=== PATIENT | female | born 1955 | race Caucasian/White ===

== ENCOUNTER 2016-07-09 08:14 | Inpatient (IN) | payer MEDICARE, MEDICAID ==
[2016-07-08 14:54] VITALS: BMI 21.1
[2016-07-08 15:00] VITALS: BP_SYST 130; RESP 20; TEMP 97.1
[~2016-07-09] VITALS: Ht 154.9 cm; Wt 56.2 kg
[2016-07-09] VITALS (40 sets, daily range): BP systolic 82–170; RESP 11–23; TEMP 97.2–98; Ht 154.9 cm; Wt 56.2 kg
[2016-07-09] MEDS: LACT RINGERS 1,000 ML IV SCH ×2 (08:10→09:27)
[~2016-07-09 08:14] MED LIST: GLYCOPYRROLATE 0.2 MG/ML VIAL IV ONE; LIDOCAINE 1% BUFFERED 1 ML SYR INTRADERM PRN; MIDAZOLAM 2 MG/2 ML INJ IV ONE
[2016-07-09] MEDS ORDERED: CEFAZOLIN 2,000 MG in SODIUM CHLORIDE 0.9% 100 ML IV ONE (08:20)
[2016-07-09] MEDS ORDERED: NALOXONE 0.4 MG/ML AMP IV PRN (10:10)
[2016-07-09] MEDS ORDERED: BUPIV EPIDURAL SCH (10:10)
[2016-07-09] MEDS ORDERED: ONDANSETRON 4 MG VIAL IV PRN ×3 (10:10→15:55)
[2016-07-09] MEDS ORDERED: FENT EPIDURAL SCH (10:10)
[2016-07-09] MEDS ORDERED: PROTAMINE 50 MG/5 ML VIAL IV ONE (11:14)
[2016-07-09] MEDS ORDERED: BACITRACIN 50,000 UNITS INJ IRRIG ONE (11:14)
[2016-07-09] MEDS ORDERED: GELATIN SPONGE 100 CM2 TOPICAL ONE (11:14)
[2016-07-09] MEDS ORDERED: THROMBIN SOLN 20000 UNITS KIT TOPICAL ONE ×2 (11:14)
[2016-07-09] MEDS ORDERED: MORPHINE 4 MG/ML SYR IV PRN (11:15)
[2016-07-09] MEDS ORDERED: OXYCODONE 5 MG TAB PO PRN (11:15)
[2016-07-09] MEDS ORDERED: MEPERIDINE 25 MG/ML IV PRN (11:15)
[2016-07-09] MEDS ORDERED: MORPHINE 2 MG/ML SYR IV PRN (11:15)
[2016-07-09] MEDS ORDERED: DILAUDID 1 MG/ML AMP IV PRN (11:15)
[2016-07-09] MEDS ORDERED: ONDANSETRON 4 MG VIAL IV PUSH ONE (11:34)
[2016-07-09] MEDS ORDERED: FENTANYL 250 MCG/5 ML AMP IV ONE (11:34)
[2016-07-09] MEDS ORDERED: LIDOCAINE 2% SYR 5 ML IV ONE (11:34)
[2016-07-09] MEDS ORDERED: MORPHINE PF 0.5 MG/ML 10 ML IV ONE (11:34)
[2016-07-09] MEDS ORDERED: PHENYLEPHRINE 10 MG/ML VIAL IV ONE (11:34)
[2016-07-09] MEDS ORDERED: NEOSTIGMINE 10 MG/10 ML VIAL IV ONE (11:34)
[2016-07-09] MEDS ORDERED: PROPOFOL 20 ML PER ML IV ONE (11:34)
[2016-07-09] MEDS ORDERED: GLYCOPYRROLATE 0.2 MG/ML VIAL IV ONE (11:34)
[2016-07-09] MEDS ORDERED: BUPIVACAINE 0.25% PF 10ML EPIDURAL ONE (11:34)
[2016-07-09] MEDS ORDERED: ROCURONIUM 50 MG VIAL IV ONE (11:34)
[2016-07-09] MEDS ORDERED: HEPARIN IV SCH (15:55)
[2016-07-09] MEDS ORDERED: SALINE FLUSH 10 ML FLUSH PRN (15:55)
[2016-07-09] MEDS ORDERED: POTASSIUM CHLORIDE PREMIX 50 ML IV PRN (15:55)
[2016-07-09] MEDS ORDERED: [UNRECOGNIZED DRUG - OTHER] IV SCH (15:55)
[2016-07-09] MEDS: DEXTROSE 5% LACT RINGERS 1,000 ML IV SCH (16:51)
[2016-07-09] MEDS: D5-NS W/KCL 20MEQ/L 1,000 ML IV SCH (16:52)
[2016-07-09] MEDS ORDERED: Flu Vaccine Quadrivalent 60 MCG/0.5 ML IM.VACC ONE (18:40)
[2016-07-09] MEDS: DUONEB INH SCH (19:00)
[2016-07-09] MEDS: CEFAZOLIN 2,000 MG in SODIUM CHLORIDE 0.9% 100 ML IV SCH (19:50)
[2016-07-09] MEDS: **ONLY ANESTEHSIA MAY ORDER OPIATES WHILE ON EPIDURAL XX SCH (20:00)
[2016-07-09] MEDS: FAMOTIDINE 20 MG INJ IV SCH (20:19)
[2016-07-09] MEDS: SALINE FLUSH 10 ML FLUSH SCH (20:20)
[2016-07-10] VITALS (37 sets, daily range): BP systolic 84–186; RESP 0–28; TEMP 98.2–101
[2016-07-10] MEDS: DUONEB INH SCH ×6 (00:13→22:15)
[2016-07-10] MEDS: NEB-BROVANA 15 MCG/2 ML INH SCH ×3 (00:14→18:29)
[2016-07-10] MEDS: NEB-BUDESONIDE 0.5 MG INH SCH ×3 (00:14→18:29)
[2016-07-10] MEDS ORDERED: MISSING DOSE XX ONE (03:15)
[2016-07-10] MEDS: CEFAZOLIN 2,000 MG in SODIUM CHLORIDE 0.9% 100 ML IV SCH (03:55)
[2016-07-10] MEDS: DEXTROSE 5% LACT RINGERS 1,000 ML IV SCH (05:46)
[2016-07-10] MEDS: SODIUM CHLORIDE 0.9% FLUSH BAG 500 ML IV SCH (05:47)
[2016-07-10] MEDS: D5-NS W/KCL 20MEQ/L 1,000 ML IV SCH (05:47)
[2016-07-10] MEDS ORDERED: NITROGLYCERIN 50 MG/250 ML 250 ML IV SCH (06:05)
[2016-07-10] MEDS ORDERED: LABETALOL 100 MG/20 ML VIAL IV PUSH ONE (06:45)
[2016-07-10] MEDS ORDERED: [UNRECOGNIZED DRUG - MIXTURE] IV SCH (06:45)
[2016-07-10] MEDS ORDERED: LABETALOL 100 MG/20 ML VIAL ONE (06:49)
[2016-07-10] MEDS ORDERED: CLEVIDIPINE 25 MG/50 ML 50 ML IV ONE (06:52)
[2016-07-10] MEDS ORDERED: METOPROLOL 5 MG/5 ML VIAL IV ONE (08:42)
[2016-07-10] MEDS: FAMOTIDINE 20 MG INJ IV SCH ×2 (08:50→19:34)
[2016-07-10] MEDS: SALINE FLUSH 10 ML FLUSH SCH ×2 (08:50→19:39)
[2016-07-10] MEDS ORDERED: CALCIUM GLUCONATE 2,000 MG in SODIUM CHLORIDE 0.9% 100 ML IV ONE (09:00)
[2016-07-10] MEDS: **ONLY ANESTEHSIA MAY ORDER OPIATES WHILE ON EPIDURAL XX SCH ×2 (10:20→20:00)
[2016-07-10] MEDS: METOPROLOL 5 MG/5 ML VIAL IV SCH ×3 (10:36→18:00)
[2016-07-10] MEDS: NICOTINE 21 MG/24 HR TRANSDERM SCH (10:47)
[2016-07-10] MEDS ORDERED: DIPHENHYDRAMINE 50 MG/ML VIAL IV ONE (13:25)
[2016-07-10] MEDS ORDERED: BUTORPHANOL 1 MG/ML VIAL IV PRN (13:40)
[2016-07-10] MEDS: FENT EPIDURAL SCH (15:26)
[2016-07-10] MEDS: BUPIV EPIDURAL SCH (15:26)
[2016-07-10] MEDS ORDERED: ACETAMINOPHEN 325 MG TAB PO PRN (20:10)
[2016-07-11] VITALS (25 sets, daily range): BP systolic 88–137; RESP 9–22; TEMP 98.6–99.8
[2016-07-11] MEDS: D5-NS W/KCL 20MEQ/L 1,000 ML IV SCH ×2 (05:24→14:47)
[2016-07-11] MEDS: SODIUM CHLORIDE 0.9% FLUSH BAG 500 ML IV SCH (06:00)
[2016-07-11] MEDS: METOPROLOL 5 MG/5 ML VIAL IV SCH ×4 (06:00→18:00)
[2016-07-11] MEDS: NEB-BUDESONIDE 0.5 MG INH SCH ×2 (06:18→17:05)
[2016-07-11] MEDS: NEB-BROVANA 15 MCG/2 ML INH SCH ×2 (06:18→17:05)
[2016-07-11] MEDS: DUONEB INH SCH ×4 (06:18→23:21)
[2016-07-11] MEDS: **ONLY ANESTEHSIA MAY ORDER OPIATES WHILE ON EPIDURAL XX SCH ×2 (08:00→20:00)
[2016-07-11] MEDS: NICOTINE 21 MG/24 HR TRANSDERM SCH (08:34)
[2016-07-11] MEDS: SALINE FLUSH 10 ML FLUSH SCH ×2 (08:35→20:14)
[2016-07-11] MEDS: FAMOTIDINE 20 MG INJ IV SCH ×2 (08:35→20:06)
[2016-07-11] MEDS: MAGNESIUM SULF 1 GM/100 ML 100 ML IV SCH ×3 (08:41→11:37)
[2016-07-11] MEDS: ACETAMINOPHEN 325 MG TAB PO SCH ×3 (10:34→22:15)
[2016-07-11] MEDS: FENT EPIDURAL SCH (13:34)
[2016-07-11] MEDS: BUPIV EPIDURAL SCH (13:34)
[2016-07-11] MEDS ORDERED: PHARMACY TO DOSE ZOSYN IV SCH (15:25)
[2016-07-11] MEDS ORDERED: MISSING DOSE XX ONE (15:45)
[2016-07-11] MEDS: PIPERACIL/TAZO 3.375GM/50ML 50 ML IV SCH ×2 (18:34→23:22)
[2016-07-12] VITALS (25 sets, daily range): BP systolic 87–152; RESP 9–20; TEMP 98.2–98.5
[2016-07-12] MEDS: D5-NS W/KCL 20MEQ/L 1,000 ML IV SCH ×3 (01:47→22:16)
[2016-07-12] MEDS: ACETAMINOPHEN 325 MG TAB PO SCH ×4 (04:22→22:15)
[2016-07-12] MEDS: METOPROLOL 5 MG/5 ML VIAL IV SCH ×4 (06:00→17:30)
[2016-07-12] MEDS: SODIUM CHLORIDE 0.9% FLUSH BAG 500 ML IV SCH (06:00)
[2016-07-12] MEDS: PIPERACIL/TAZO 3.375GM/50ML 50 ML IV SCH ×4 (06:08→23:36)
[2016-07-12] MEDS: NEB-BROVANA 15 MCG/2 ML INH SCH ×2 (06:17→18:13)
[2016-07-12] MEDS: DUONEB INH SCH ×5 (06:17→23:45)
[2016-07-12] MEDS: NEB-BUDESONIDE 0.5 MG INH SCH ×2 (06:17→18:13)
[2016-07-12] MEDS: **ONLY ANESTEHSIA MAY ORDER OPIATES WHILE ON EPIDURAL XX SCH ×2 (08:00→19:51)
[2016-07-12] MEDS: SALINE FLUSH 10 ML FLUSH SCH ×2 (08:44→19:26)
[2016-07-12] MEDS: NICOTINE 21 MG/24 HR TRANSDERM SCH (08:44)
[2016-07-12] MEDS: FAMOTIDINE 20 MG INJ IV SCH ×2 (08:44→19:31)
[2016-07-12] MEDS: FENT EPIDURAL SCH (11:41)
[2016-07-12] MEDS: BUPIV EPIDURAL SCH (11:41)
[2016-07-13] VITALS (16 sets, daily range): BP systolic 109–176; RESP 11–21; TEMP 97.9–98.7
[2016-07-13] MEDS: ACETAMINOPHEN 325 MG TAB PO SCH ×4 (04:15→21:36)
[2016-07-13] MEDS: NEB-BUDESONIDE 0.5 MG INH SCH ×2 (05:05→19:18)
[2016-07-13] MEDS: DUONEB INH SCH ×5 (05:05→22:54)
[2016-07-13] MEDS: NEB-BROVANA 15 MCG/2 ML INH SCH ×2 (05:05→19:18)
[2016-07-13] MEDS: SODIUM CHLORIDE 0.9% FLUSH BAG 500 ML IV SCH (05:18)
[2016-07-13] MEDS: PIPERACIL/TAZO 3.375GM/50ML 50 ML IV SCH ×3 (05:31→17:52)
[2016-07-13] MEDS: METOPROLOL 5 MG/5 ML VIAL IV SCH ×4 (06:00→17:52)
[2016-07-13] MEDS: **ONLY ANESTEHSIA MAY ORDER OPIATES WHILE ON EPIDURAL XX SCH (08:00)
[2016-07-13] MEDS: NICOTINE 21 MG/24 HR TRANSDERM SCH (08:24)
[2016-07-13] MEDS: FAMOTIDINE 20 MG INJ IV SCH ×2 (08:29→21:24)
[2016-07-13] MEDS: SALINE FLUSH 10 ML FLUSH SCH ×2 (08:30→21:23)
[2016-07-13] MEDS: D5-NS W/KCL 20MEQ/L 1,000 ML IV SCH (21:26)
[2016-07-14] VITALS (7 sets, daily range): BP systolic 118–156; RESP 14–20; TEMP 97.9–98.9
[2016-07-14] MEDS: METOPROLOL 5 MG/5 ML VIAL IV SCH ×3 (00:19→12:00)
[2016-07-14] MEDS: PIPERACIL/TAZO 3.375GM/50ML 50 ML IV SCH ×4 (00:19→18:30)
[2016-07-14] MEDS: ACETAMINOPHEN 325 MG TAB PO SCH ×4 (04:15→21:16)
[2016-07-14] MEDS: SODIUM CHLORIDE 0.9% FLUSH BAG 500 ML IV SCH (05:29)
[2016-07-14] MEDS: DUONEB INH SCH ×5 (06:35→22:31)
[2016-07-14] MEDS: NEB-BROVANA 15 MCG/2 ML INH SCH ×2 (06:35→18:33)
[2016-07-14] MEDS: NEB-BUDESONIDE 0.5 MG INH SCH ×2 (06:35→18:33)
[2016-07-14] MEDS: SALINE FLUSH 10 ML FLUSH SCH ×2 (08:00→19:55)
[2016-07-14] MEDS: D5-NS W/KCL 20MEQ/L 1,000 ML IV SCH (08:22)
[2016-07-14] MEDS: FAMOTIDINE 20 MG INJ IV SCH ×2 (08:38→19:55)
[2016-07-14] MEDS: NICOTINE 21 MG/24 HR TRANSDERM SCH (08:39)
[2016-07-14] MEDS: METOPROLOL XL 25 MG TAB PO SCH ×2 (14:40→19:55)
[2016-07-15] MEDS: PIPERACIL/TAZO 3.375GM/50ML 50 ML IV SCH ×5 (00:49→23:51)
[2016-07-15] MEDS: D5-NS W/KCL 20MEQ/L 1,000 ML IV SCH (00:51)
[2016-07-15 03:11] VITALS: BP_SYST 147; RESP 18; TEMP 98.3
[2016-07-15] MEDS: ACETAMINOPHEN 325 MG TAB PO SCH ×4 (04:55→22:26)
[2016-07-15] MEDS: SODIUM CHLORIDE 0.9% FLUSH BAG 500 ML IV SCH (04:57)
[2016-07-15] MEDS: NEB-BUDESONIDE 0.5 MG INH SCH ×2 (06:16→19:00)
[2016-07-15] MEDS: NEB-BROVANA 15 MCG/2 ML INH SCH ×2 (06:16→19:00)
[2016-07-15] MEDS: DUONEB INH SCH ×5 (06:16→22:39)
[2016-07-15 07:33] VITALS: BP_SYST 137; RESP 16; TEMP 98
[2016-07-15] MEDS: FAMOTIDINE 20 MG INJ IV SCH ×2 (09:19→19:47)
[2016-07-15] MEDS: NICOTINE 21 MG/24 HR TRANSDERM SCH (09:19)
[2016-07-15] MEDS: SALINE FLUSH 10 ML FLUSH SCH ×2 (09:19→19:49)
[2016-07-15] MEDS: METOPROLOL XL 25 MG TAB PO SCH ×2 (09:20→19:49)
[2016-07-15 11:26] VITALS: BP_SYST 118; RESP 16; TEMP 98.2
[2016-07-15] MEDS ORDERED: KETOROLAC 15 MG/ML VIAL IV PRN (11:40)
[2016-07-15] MEDS: OXYCODONE 5 MG TAB PO PRN ×2 (15:06→19:49)
[2016-07-15 15:28] VITALS: BP_SYST 129; RESP 16; TEMP 98.5
[2016-07-15] MEDS: KETOROLAC 15 MG/ML VIAL IV SCH ×2 (18:14→23:51)
[2016-07-15 19:45] VITALS: BP_SYST 121; RESP 18; TEMP 97.8
[2016-07-15 23:02] VITALS: BP_SYST 134; RESP 18; TEMP 98.4
[2016-07-16] VITALS (7 sets, daily range): BP systolic 123–160; RESP 16–18; TEMP 97.8–98.7
[2016-07-16] MEDS: OXYCODONE 5 MG TAB PO PRN ×3 (01:04→19:57)
[2016-07-16] MEDS: D5-NS W/KCL 20MEQ/L 1,000 ML IV SCH (05:29)
[2016-07-16] MEDS: SODIUM CHLORIDE 0.9% FLUSH BAG 500 ML IV SCH (06:00)
[2016-07-16] MEDS: ACETAMINOPHEN 325 MG TAB PO SCH ×4 (06:13→21:29)
[2016-07-16] MEDS: KETOROLAC 15 MG/ML VIAL IV SCH ×3 (06:13→17:21)
[2016-07-16] MEDS: PIPERACIL/TAZO 3.375GM/50ML 50 ML IV SCH ×3 (06:14→17:21)
[2016-07-16] MEDS: DUONEB INH SCH ×4 (08:01→19:00)
[2016-07-16] MEDS: NEB-BUDESONIDE 0.5 MG INH SCH ×2 (08:01→19:00)
[2016-07-16] MEDS: NEB-BROVANA 15 MCG/2 ML INH SCH ×2 (08:01→19:00)
[2016-07-16] MEDS: FAMOTIDINE 20 MG INJ IV SCH ×2 (08:25→19:51)
[2016-07-16] MEDS: METOPROLOL XL 25 MG TAB PO SCH ×2 (08:26→20:00)
[2016-07-16] MEDS: SALINE FLUSH 10 ML FLUSH SCH ×2 (08:26→19:50)
[2016-07-16] MEDS: NICOTINE 21 MG/24 HR TRANSDERM SCH (08:27)
[2016-07-16] MEDS ORDERED: MISSING DOSE XX ONE (19:30)
[2016-07-16] MEDS ORDERED: ONDANSETRON 4 MG TAB PO PRN ×2 (19:30)
== END 2016-07-16 21:39 | DRG 270 ==
LOC: ENRESERVDT → ENRESERVTM → SDS 08:14 → CCU 16:13 → 5THE 07-13 09:28
PROVIDERS: ADMIT Surgery Vascular Surgery; ATTEND Surgery Vascular Surgery
PROC: 04100JH Bypass Abdominal Aorta to Right Femoral Artery with Synthetic Substitute, Open Approach (ICD-10-PCS; principal; 2016-07-09 09:30)
CPT/HCPCS: 36415; 71010; 80048; 80051; 80069; 82330; 82803; 83605; 83735; 84484; 85025; 85610; 85730; 86850; 86900; 86901; 87071; 93005; 94640; 94799; 99223; 99232; 99233; 99291

== ENCOUNTER 2016-07-27 11:49 | Emergency (ER) | payer MEDICARE, MEDICAID | END 2016-07-27 14:52 | disposition home or self-care (01) | LOC: ER 11:49 | DX: R55 Syncope and collapse (principal); Z98.890 Other specified postprocedural states; I10 Essential (primary) hypertension; Z79.82 Long term (current) use of aspirin; Z79.02 Long term (current) use of antithrombotics/antiplatelets; Z87.891 Personal history of nicotine dependence | CPT/HCPCS: 80053; 85025; 85610 ==